=== PATIENT | male | born 2000 | race Caucasian/White ===

== ENCOUNTER 2018-01-26 10:07 | Emergency (ER) | payer MEDICAID, OTHER ==
[2018-01-26 10:16] VITALS: BP 98/59; PULSE 71; RESP 18; TEMP 98.5; O2SAT 98
--- NOTE | 2018-01-26 11:03 | C.PDOC ---
History Of Present Illness 17-year-old male, presents to the emergency department with complaints of foreign body sensation in right ear x3 days. Patient notes mild pain, and discomfort when he swallows. He denies any discharge, fever, nausea/vomiting, or any other associated symptoms. No other complaints at this time. Time Seen by Provider: 01/26/18 10:16 Chief Complaint (Nursing): ENT Problem History Per: Patient History/Exam Limitations: None Current Symptoms Are (Timing): Still Present Past Medical History Reviewed: Historical Data, Nursing Documentation, Vital Signs Vital Signs: Last Vital Signs Temp 98.5 F 01/26/18 10:13 Pulse 71 01/26/18 10:13 Resp 18 01/26/18 10:13 BP 98/59 L 01/26/18 10:13 Pulse Ox 98 01/26/18 11:26 Family History: States: No Known Family Hx - Social History Hx Alcohol Use: No Hx Substance Use: No - Immunization History Hx Tetanus Toxoid Vaccination: No Hx Influenza Vaccination: No Hx Pneumococcal Vaccination: No Review Of Systems Constitutional: Negative for: Fever ENT: Positive for: Ear Pain. Negative for: Ear Discharge Respiratory: Negative for: Cough Physical Exam - Physical Exam Appears: Non-toxic, No Acute Distress Skin: Warm, Dry, No Rash Head: Atraumatic, Normacephalic Eye(s): bilateral: Normal Inspection Ear(s): Right: Other (cotton swab visualized in canal. No erythema, no discharge ) Nose: Normal Oral Mucosa: Moist Lips: Normal Appearing Neck: Normal ROM Neurological/Psych: Oriented x3 ED Course And Treatment O2 Sat by Pulse Oximetry: 98 Pulse Ox Interpretation: Normal (RA) Progress Note: foreign body removed with alligator forceps. patient will be discharged for outpatient f/u with PMD. All questions answered. Disposition Counseled Patient/Family Regarding: Diagnosis, Need For Followup - Disposition Referrals: [facility] [Outside] Disposition: HOME/ ROUTINE Disposition Time: 11:00 Condition: STABLE Additional Instructions: FOLLOW UP WITH YOUR DOCTOR IN 1-2 DAYS RETURN TO ER IF YOU HAVE ANY CONCERNING SYMPTOMS WORSEN Instructions: Foreign Body in Ear, Child (DC) Forms: [employer] (Kyrgyz) Print Language: PASHTO - Clinical Impression Clinical Impression: Foreign body in right ear - Scribe Statement The provider has reviewed the documentation as recorded by the Scribe (Cherise Huggins) Provider Attestation: All medical record entries made by the Bhargavi were at my direction and personally dictated by me. I have reviewed the chart and agree that the record accurately reflects my personal performance of the history, physical exam, medical decision making, and the department course for this patient. I have also personally directed, reviewed, and agree with the discharge instructions and disposition.
== END 2018-01-26 11:07 | disposition home or self-care (01) ==
LOC: C.ER 10:07
DX: T16.1XXA Foreign body in right ear, initial encounter (principal); X58.XXXA Exposure to other specified factors, initial encounter